=== PATIENT | male | born 1985 | race Caucasian/White ===

== ENCOUNTER 2022-05-20 05:54 | Inpatient (IN) | payer OTHER ==
[~2022-05-20] VITALS: Ht 188 cm; Wt 70.4 kg
[2022-05-20] MEDS ORDERED: ONDANSETRON 4MG 2ML VIAL IV ONE (06:45)
[2022-05-20] MEDS ORDERED: NS 1,000 ML IV ONE (06:45)
[2022-05-20] MEDS ORDERED: KETOROLAC 30 MG/ML 1ML VIAL IV ONE (06:45)
[2022-05-20] MEDS ORDERED: METOCLOPRAMIDE INJ 10MG/2ML VIAL IV ONE (07:30)
[2022-05-20] MEDS ORDERED: SUCRALFATE 1 GM TAB PO ONE (07:30)
[2022-05-20] MEDS ORDERED: GI COCKTAIL 50ML BTL(HYOSCYAMINE/MAALOX/LIDOCAINE VISCOUS)(1:3:1) PO ONE (07:30)
[2022-05-20] MEDS ORDERED: MORPHINE 4 MG/ML 1ML VIAL IV ONE ×2 (07:30→11:05)
[2022-05-20 07:33] LABS: BASO # 0.1 10^3/uL (0.0-0.2); BASO % 0.9 % (0.0-1.0); EOS # 0.2 10^3/uL (0.0-0.5); EOS % 1.9 % (0.0-3.0); HEMATOCRIT 44.4 % (42.0-52.0); HEMOGLOBIN 15.3 g/dl (13.5-17.5); LYMPH # 1.4 10^3/uL (1.5-5.0); LYMPH % 12.9 % (24.0-44.0); MEAN CORPUSCULAR HEMOGLOBIN 29.8 pg (27.0-33.0); MEAN CORPUSCULAR HGB CONC 34.5 g/dl (32.0-36.5); MEAN CORPUSCULAR VOLUME 86.4 fl (80.0-96.0); MONO # 0.4 10^3/uL (0.0-0.8); MONO % 4.2 % (2.0-8.0); NEUTROPHILS # 8.4 10^3/uL (1.5-8.5); NEUTROPHILS % 79.7 % (36.0-66.0); PLATELET COUNT, AUTOMATED 328 10^3/uL (150-450); RED BLOOD COUNT 5.14 10^6/uL (4.30-6.10); WHITE BLOOD COUNT 10.5 10^3/uL (4.0-10.0)
[2022-05-20 07:39] LABS: BILIRUBIN,DIRECT 0.4 MG/DL (<0.4); BILIRUBIN,TOTAL 1.5 MG/DL (0.3-1.2); TOTAL PROTEIN 7.4 G/DL (5.7-8.2)
[2022-05-20] MEDS ORDERED: ISOVUE-370 76% 100ML VIAL As Ordered ONE (08:03)
[2022-05-20] MEDS ORDERED: NS 1,000 ML IV SCH (11:35)
[2022-05-20] MEDS ORDERED: MORPHINE 2 MG/ML 1ML VIAL IV PRN (11:55)
[2022-05-20] MEDS ORDERED: ACETAMINOPHEN 650MG SUPP PR PRN (11:55)
[2022-05-20] MEDS ORDERED: E-Z-PAQUE 96% w/w SUSP 176GM BTL As Ordered ONE (12:20)
[2022-05-20] MEDS ORDERED: LEXA1TAB PO (12:25)
[2022-05-20] MEDS ORDERED: HOME MED LIST COMPLETE! XX SCH (12:35)
[2022-05-20 12:46] LABS: RSV AMPLIFICATION NEGATIVE (NEGATIVE)
[2022-05-20 13:16] LABS: GC DNA AMPLIFICATION NEGATIVE (NEGATIVE)
[2022-05-20] MEDS: LR 1,000 ML IV SCH ×2 (15:18→20:31)
[2022-05-20 16:00] VITALS: BP 111/68
[2022-05-20] MEDS: MORPHINE 2 MG/ML 1ML VIAL IV PRN (20:31)
[2022-05-20 20:45] VITALS: BP 109/64
[2022-05-21] MEDS: MORPHINE 2 MG/ML 1ML VIAL IV PRN (01:24)
[2022-05-21] MEDS: LR 1,000 ML IV SCH (03:14)
[2022-05-21 05:12] VITALS: BP 116/64
[2022-05-21 06:30] LABS: HEMATOCRIT 41.3 % (42.0-52.0); HEMOGLOBIN 13.7 g/dl (13.5-17.5); MEAN CORPUSCULAR HEMOGLOBIN 29.8 pg (27.0-33.0); MEAN CORPUSCULAR HGB CONC 33.2 g/dl (32.0-36.5); MEAN CORPUSCULAR VOLUME 89.8 fl (80.0-96.0); PLATELET COUNT, AUTOMATED 280 10^3/uL (150-450); WHITE BLOOD COUNT 9.8 10^3/uL (4.0-10.0)
[2022-05-21 07:04] LABS: BLOOD UREA NITROGEN 7 MG/DL (9-23); CALCIUM LEVEL 8.7 MG/DL (8.5-10.1); CARBON DIOXIDE LEVEL 29 MMOL/L (20-31); CHLORIDE LEVEL 108 MMOL/L (98-107); CREATININE FOR GFR 0.87 MG/DL (0.70-1.30); GLOMERULAR FILTRATION RATE > 60.0 (>60); GLUCOSE, FASTING 93 MG/DL (60-100); POTASSIUM SERUM 4.5 MMOL/L (3.5-5.1); SODIUM LEVEL 141 MMOL/L (136-145)
[2022-05-21] MEDS ORDERED: KETOROLAC TROMETHAMINE 10 MG TAB PO PRN (09:10)
[2022-05-21] MEDS ORDERED: KETOROLAC 30 MG/ML 1ML VIAL IV ONE (09:10)
[2022-05-21] MEDS ORDERED: ACETAMINOPHEN 500 MG TAB PO PRN (09:15)
== END 2022-05-21 13:55 | disposition home or self-care (01) | DRG 248 ==
LOC: M ED 05:54 → ENRESERV 14:53 → M MSPAV 15:39 → M ED 17:43
PROVIDERS: ADMIT Family Medicine; ATTEND Family Medicine
DX: A04.8 Other specified bacterial intestinal infections (principal); F41.9 Anxiety disorder, unspecified; F10.21 Alcohol dependence, in remission; K57.90 Diverticulosis of intestine, part unspecified, without perforation or abscess without bleeding

== ENCOUNTER 2022-05-23 02:54 | Emergency (ER) | payer OTHER ==
[~2022-05-23] VITALS: Ht 182.9 cm; Wt 72.0 kg
[~2022-05-23 02:54] MED LIST: LEXA1TAB PO
[2022-05-23] MEDS ORDERED: ONDANSETRON 4MG 2ML VIAL As Ordered ONE (03:36)
[2022-05-23] MEDS ORDERED: ONDANSETRON 4MG 2ML VIAL IV ONE (03:40)
[2022-05-23 04:26] LABS: BASO # 0.1 10^3/uL (0.0-0.2); BASO % 1.3 % (0.0-1.0); EOS # 0.4 10^3/uL (0.0-0.5); EOS % 3.9 % (0.0-3.0); HEMATOCRIT 45.7 % (42.0-52.0); HEMOGLOBIN 15.5 g/dl (13.5-17.5); LYMPH % 27.9 % (24.0-44.0); MEAN CORPUSCULAR HEMOGLOBIN 29.9 pg (27.0-33.0); MEAN CORPUSCULAR HGB CONC 33.9 g/dl (32.0-36.5); MEAN CORPUSCULAR VOLUME 88.2 fl (80.0-96.0); MONO # 0.8 10^3/uL (0.0-0.8); MONO % 7.7 % (2.0-8.0); NEUTROPHILS # 6.4 10^3/uL (1.5-8.5); PLATELET COUNT, AUTOMATED 358 10^3/uL (150-450); RED BLOOD COUNT 5.18 10^6/uL (4.30-6.10); WHITE BLOOD COUNT 10.8 10^3/uL (4.0-10.0)
[2022-05-23] MEDS ORDERED: NS 1,000 ML IV ONE (04:45)
[2022-05-23 04:53] LABS: LIPASE 33 U/L (12-53)
[2022-05-23 05:02] LABS: ALBUMIN 4.3 G/DL (3.2-5.2); ALKALINE PHOSPHATASE 88 U/L (46-116); ALT/SGPT 18 U/L (7.0-40); AST/SGOT 18 U/L (<34); BILIRUBIN,DIRECT 0.4 MG/DL (<0.4); BILIRUBIN,TOTAL 1.2 MG/DL (0.3-1.2); BLOOD UREA NITROGEN 16 MG/DL (9-23); CALCIUM LEVEL 9.8 MG/DL (8.5-10.1); CARBON DIOXIDE LEVEL 23 MMOL/L (20-31); CHLORIDE LEVEL 103 MMOL/L (98-107); CREATININE FOR GFR 0.86 MG/DL (0.70-1.30); GLOMERULAR FILTRATION RATE > 60.0 (>60); GLUCOSE, FASTING 95 MG/DL (60-100); SODIUM LEVEL 138 MMOL/L (136-145); TOTAL PROTEIN 7.7 G/DL (5.7-8.2)
[2022-05-23] MEDS: MORPHINE 4 MG/ML 1ML VIAL IV PRN ×2 (05:04→05:54)
[2022-05-23 05:31] LABS: AMORPHOUS SEDIMENT SMALL (NEGATIVE); APPEARANCE, URINE CLOUDY (CLEAR); BACTERIA, URINE AUTO NEGATIVE (NEGATIVE); BILIRUBIN, URINE AUTO NEGATIVE (NEGATIVE); BLOOD, URINE BLOOD NEGATIVE (NEGATIVE); COLOR, URINE YELLOW (YELLOW); GLUCOSE, URINE (UA) AUTO NEGATIVE (NEGATIVE); KETONE, URINE AUTO NEGATIVE (NEGATIVE); LEUKOCYTE ESTERASE, URINE AUTO NEGATIVE (NEGATIVE); NITRITE, URINE AUTO NEGATIVE (NEGATIVE); PROTEIN, URINE AUTO NEGATIVE (NEGATIVE); RBC, URINE AUTO 0 /HPF (0-3); SPECIFIC GRAVITY URINE AUTO 1.012 (1.002-1.035); SQUAMOUS EPITHELIAL CELL UR AU 0 /HPF (0-6); UROBILINOGEN, URINE AUTO 0.2 mg/dL (0.0-2.0); WBC, URINE AUTO 0 /HPF (0-3)
[2022-05-23 05:41] LABS: AMPHETAMINES LEVEL URINE NEGATIVE (NEGATIVE); BARBITURATES URINE NEGATIVE (NEGATIVE); BENZODIAZEPINES URINE NEGATIVE (NEGATIVE)
[2022-05-23 05:42] LABS: COCAINE METABOLITE URINE NEGATIVE (NEGATIVE); METHADONE URINE NEGATIVE (NEGATIVE); OPIATES URINE NEGATIVE (NEGATIVE); PHENCYCLIDINE URINE NEGATIVE (NEGATIVE)
[2022-05-23 05:43] LABS: CANNABINOIDS URINE POSITIVE (NEGATIVE)
[2022-05-23] MEDS ORDERED: KETOROLAC 30 MG/ML 1ML VIAL IV ONE (07:50)
[2022-05-23] MEDS ORDERED: FLEEENE12 PR (10:40)
[2022-05-23] MEDS ORDERED: COLA100C5 PO (10:40)
[2022-05-23] MEDS ORDERED: MAGNESIUM CITRATE 300ML BTL PO ONE (10:40)
[2022-05-23 11:32] VITALS: BP 120/76
== END 2022-05-23 11:43 | disposition home or self-care (01) ==
LOC: M ED 02:54
DX: R10.9 Unspecified abdominal pain (principal); K59.00 Constipation, unspecified; F17.200 Nicotine dependence, unspecified, uncomplicated; F14.10 Cocaine abuse, uncomplicated
CPT/HCPCS: 74176; 80048; 80076; 80307; 81001; 83690; 85025; 87635; 93041; 96374; 96375; 99285; J1885; J2270; J2405

== ENCOUNTER → 2022-06-04 | Outpatient (CLI) | payer OTHER ==
[~2022-06-04] MED LIST changes: +COLA100C5 PO; +FLEEENE12 PR
== END ==
LOC: M SOG 08:00
PROVIDERS: ATTEND Orthopaedic Surgery
DX: M54.50 Low back pain, unspecified (principal); M51.36 Other intervertebral disc degeneration, lumbar region